=== PATIENT | female | born 1965 | race Caucasian/White ===

== ENCOUNTER → 2021-05-03 | Outpatient (CLI) | payer OTHER | LOC: COL.RAD 07:46 | DX: K62.89 Other specified diseases of anus and rectum (principal); E11.9 Type 2 diabetes mellitus without complications; Z87.19 Personal history of other diseases of the digestive system | CPT/HCPCS: A9541 ==

== ENCOUNTER → 2023-09-28 | Outpatient (CLI) | payer MEDICARE, OTHER ==
[~2023-09-28] MED LIST: ACTOS 15MG TAB15 MG PO; ALBUTEROL0.83 MG/ML IH; Albuterol 0.083% Neb Soln 2.5 MG/3 ML UD IH ONE; BREZTRI AEROS10.7 GM IH; CARAFATE 1GM1 G PO; CLARISPRAY9.9 ML NS; HYDROCORTISON28.4 GM TP; INSULIN AS100 UNIT/3; LANTUS SOLOS100 U/ML SQ; LUXIQ TP; MEDROL 4MG DOSPA4 MG PO; MUCUS RELIEF200 MG PO; MULTI VITAMINS1 TAB PO; NIZORAL SHAMPO120 M1 TP; PROTONIX 40MG T40 MG PO; SINGULAIR 110 MG/TAB PO; ZYRTEC 10MG10 MG PO
== END ==
LOC: COL.CARD 12:52
DX: R06.02 Shortness of breath (principal)